=== PATIENT | male | born 1945 ===

== ENCOUNTER 2018-06-05 12:05 | Emergency (ER) | payer MEDICARE ==
--- NOTE | 2018-06-05 13:59 | RAD ---
Date of service: 06/05/2018 PROCEDURE: Radiographs of the Left Shoulder HISTORY: SHOULDER PAIN NO TRAUMA COMPARISON: No prior. FINDINGS: BONES: Normal. No fracture. JOINTS: Normal. Glenohumeral and acromioclavicular joints preserved. No osteoarthritis. SOFT TISSUES: Normal. OTHER FINDINGS: None. IMPRESSION: Normal radiographs of the left shoulder.
--- NOTE | 2018-06-05 14:00 | RAD ---
Date of service: 06/05/2018 PROCEDURE: Radiographs of the Right Shoulder HISTORY: SHOULDER PAIN NO TRAUMA COMPARISON: No prior. FINDINGS: BONES: Normal. No fracture. JOINTS: Normal. Glenohumeral and acromioclavicular joints preserved. No osteoarthritis. SOFT TISSUES: Normal. OTHER FINDINGS: Evidence of calcific tendinopathy. IMPRESSION: No significant or acute findings to account for/ related to the clinical presentation.
--- NOTE | 2018-06-05 14:20 | ED PDOC ---
Upper Extremity Pain/Injury Time Seen by Provider: 06/05/18 12:44 Chief Complaint (Nursing): Upper Extremity Problem/Injury Chief Complaint (Provider): Upper Extremity Problem/Injury History Per: Patient History/Exam Limitations: no limitations Onset/Duration Of Symptoms: Days (x1 month) Current Symptoms Are (Timing): Still Present Additional Complaint(s): Jun Remy is a 72 year old male with a no past medical history, who presents to the emergency department complaining of bilateral shoulder pain, onset x1 month. Patient states that the pain is mild and that it sometimes goes away but is worsened when moving his shoulders. He further states he has not taken any medications for it nor has he seen a doctor. Pain is limited to shoulders and does not radiate. Patient asked for dental work but was informed to follow up for that. He denies any chest pain, shortness of breath or injury to the shoulder. PMD: No provider Past Medical History Reviewed: Historical Data, Nursing Documentation, Vital Signs Vital Signs: Last Vital Signs Temp 97.7 F 06/05/18 12:15 Pulse 80 06/05/18 12:15 Resp 16 06/05/18 12:15 BP 143/86 06/05/18 12:15 Pulse Ox 98 06/05/18 12:15 - Surgical History Surgical History: No Surg Hx - Family History Family History: States: Unknown Family Hx - Home Medications Home Medications: Ambulatory Orders Medication Instructions Recorded Naproxen 500 mg PO BID #30 tab 06/05/18 - Allergies Allergies/Adverse Reactions: Allergies Allergy/AdvReac Type Severity Reaction Status Date / Time No Known Allergies Allergy Verified 06/05/18 12:15 Review of Systems ROS Statement: Except As Marked, All Systems Reviewed And Found Negative Cardiovascular: Negative for: Chest Pain Respiratory: Negative for: Shortness of Breath Musculoskeletal: Positive for: Shoulder Pain (bilateral) Physical Exam - Reviewed Nursing Documentation Reviewed: Yes Vital Signs Reviewed: Yes - Physical Exam Appears: Positive for: Non-toxic, No Acute Distress Head Exam: Positive for: ATRAUMATIC, NORMOCEPHALIC Skin: Positive for: Normal Color Eye Exam: Positive for: Normal appearance ENT: Positive for: Normal ENT Inspection Neck: Positive for: Normal, Painless ROM, Supple Cardiovascular/Chest: Positive for: Regular Rate, Rhythm. Negative for: Murmur Respiratory: Positive for: Normal Breath Sounds. Negative for: Respiratory Distress Gastrointestinal/Abdominal: Positive for: Normal Exam, Soft. Negative for: Tenderness Back: Positive for: Normal Inspection. Negative for: L CVA Tenderness, R CVA Tenderness, Vertebral Tenderness Extremity: Positive for: Normal ROM. Negative for: Tenderness, Deformity, Swelling, Other (erythema) Neurologic/Psych: Positive for: Alert, Oriented (x3). Negative for: Motor/Sensory Deficits - ECG O2 Sat by Pulse Oximetry: 98 (RA) Pulse Ox Interpretation: Normal - Progress Re-evaluation Time: 14:53 Condition: Re-examined, Improved Medical Decision Making Medical Decision Making: Initial Time: 12:58 Impression: Bilateral shoulder pain for x1 month Differential diagnosis includes but not limited arthritis, rotator cuff syndrome. Plan: --Shoulder x-ray 13:56 shoulder x-ray FINDINGS: BONES: Normal. No fracture. JOINTS: Normal. Glenohumeral and acromioclavicular joints preserved. No osteoarthritis. SOFT TISSUES: Normal. OTHER FINDINGS: Evidence of calcific tendinopathy. IMPRESSION: No significant or acute findings to account for/ related to the clinical presentation. Scribe Attestation: Documented by Larry Mary, acting as a scribe for Savannah Alarcon MD. Provider Scribe Attestation: All medical record entries made by the Scribe were at my direction and personally dictated by me. I have reviewed the chart and agree that the record accurately reflects my personal performance of the history, physical exam, medical decision making, and the department course for this patient. I have also personally directed, reviewed, and agree with the discharge instructions and disposition. Disposition - Clinical Impression Clinical Impression: Shoulder pain - Patient ED Disposition Is Patient to be Admitted: No Doctor Will See Patient In The: Office Counseled Patient/Family Regarding: Studies Performed, Diagnosis, Need For Followup - Disposition Referrals: Dario Lemons MD [Staff Provider] - Disposition: Routine/Home Disposition Time: 14:53 Condition: GOOD Additional Instructions: JUN REMY, thank you for letting us take care of you today. Your provider was Savannah Alarcon MD and you were treated for CHEST PAIN. The emergency medical care you received today was directed at your acute symptoms. If you were prescribed any medication, please fill it and take as directed. It may take several days for your symptoms to resolve. Return to the Emergency Department if your symptoms worsen, do not improve, or if you have any other problems. Please contact your doctor or call one of the physicians/clinics you have been referred to that are listed on the Patient Visit Information form that is included in your discharge packet. Bring any paperwork you were given at discharge with you along with any medications you are taking to your follow up visit. Our treatment cannot replace ongoing medical care by a primary care provider outside of the emergency department. Thank you for allowing the [facility] team to be part of your care today. If you had an X-Ray or CT scan: A Radiologist will review the ED reading if any change in treatment is needed we will contact you. If you had a blood, urine, or wound culture: It will take several days for the results, if any change in treatment is needed we will contact you. If you had an STI test: It will take 48 hours for the results. Please call after 1 week if you have not heard back. Prescriptions: Naproxen 500 mg PO BID #30 tab Instructions: Shoulder Pain (DC)
[2018-06-06 00:08] VITALS: BP 143/86; PULSE 80; RESP 16; TEMP 97.7; O2SAT 98
== END 2018-06-05 15:11 | disposition home or self-care (01) ==
LOC: H.ER 12:05
DX: M25.512 Pain in left shoulder (principal); M25.511 Pain in right shoulder